=== PATIENT | male | born 1960 | race Caucasian/White ===

== ENCOUNTER 2022-09-09 08:20 | Day surgery (SDC) | payer OTHER ==
[2022-09-09 09:08] LABS: BASO % 0.1 % (0-2.0); HEMATOCRIT 24.9 % (35.4-49); LYMPH % 96.3 % (8-40); MCH 22.9 pg (25.7-33.7); MCHC 26.4 g/dl (32.0-35.9); MEAN CELL VOLUME 86.8 fl (80-96); MEAN PLT VOLUME 7.3 fl (7.5-11.1); MONO % 1.5 % (3.8-10.2); NEUT % 2.1 % (42.8-82.8); PLATELET COUNT 65 10^3/uL (134-434); RBC 2.87 M/mm3 (4.00-5.60); RDW 19.9 % (11.9-15.9)
[2022-09-09 09:20] LABS: HEMOGLOBIN 6.6 GM/dL (11.7-16.9)
[2022-09-09] MEDS ORDERED: SODIUM CHLORIDE 250 ML IV ONE (09:30)
[2022-09-09 10:00] LABS: ANISOCYTOSIS 3+; MACROCYTOSIS 0; TARGET CELLS 1+
[2022-09-09] MEDS ORDERED: DIPHENHYDRAMINE 50 MG in SODIUM CHLORIDE 50 ML IVPB ONE (10:00)
[2022-09-09] MEDS ORDERED: ACETAMINOPHEN 325 MG TABLET (FP) PO ONE ×2 (10:00→18:30)
[2022-09-09 10:03] LABS: POTASSIUM 3.8 mmol/L (3.5-5.1)
[2022-09-09 10:06] LABS: ALBUMIN 3.7 g/dl (3.4-5.0); BLOOD UREA NITROGEN 28.8 mg/dL (7-18)
[2022-09-09 10:09] LABS: CREATININE 1.1 mg/dL (0.55-1.3)
[2022-09-09 10:10] LABS: BILIRUBIN,TOTAL 1.3 mg/dL (0.2-1); TOT PROT 7.3 g/dl (6.4-8.2)
[2022-09-09 10:12] LABS: BILIRUBIN,DIRECT 0.3 mg/dL (0.0-0.2)
[2022-09-09] MEDS ORDERED: RITUXIMAB-ABBS 500 MG, RITUXIMAB-ABBS 261 MG in SODIUM CHLORIDE 684.9 ML IVPB ONE (10:30)
[2022-09-09] MEDS ORDERED: ONDANSETRON 4 MG TABLET PO ONE (13:15)
[2022-09-09] MEDS ORDERED: EPINEPHrine 1:1,000 0.3 MG/0.3 ML SYR IM PRN (13:17)
[2022-09-09] MEDS ORDERED: ALBUTEROL SO4 0.083% IH SOL 2.5 MG/3 ML VIAL.NEB. NEB PRN (13:18)
[2022-09-09] MEDS ORDERED: methylPREDNISolone NA SUCC 40 MG/1 ML VIAL IVPUSH PRN (13:19)
[2022-09-09] MEDS ORDERED: FAMOTIDINE 20 MG/50 ML IVPB 20 MG/50 ML MG IVPB PRN (13:20)
[2022-09-09] MEDS ORDERED: ALBUTEROL SO4 HFA INHALER IH PRN (13:22)
[2022-09-09] MEDS ORDERED: SODIUM CHLORIDE 500 ML IVPB ONE (13:25)
[2022-09-09] MEDS ORDERED: DEXAMETHASONE SOD PHOSPHATE 10 MG/1 ML VIAL ONE (14:58)
[2022-09-09] MEDS ORDERED: DEXAMETHASONE SOD PHOSPHATE 10 MG/1 ML VIAL IVPUSH ONE (15:15)
[2022-09-09] MEDS ORDERED: methylPREDNISolone NA SUCC 125 MG/2 ML VIAL IVPUSH PRN ×2 (18:14)
[2022-09-09 18:53] VITALS: BP 112/47; PULSE 101; RESP 18; TEMP 98.5
== END 2022-09-09 19:11 | disposition home or self-care (01) ==
LOC: JONCCHEMO 08:20 → J7W 08:30 → JONCCHEMO 19:11
PROVIDERS: ATTEND Internal Medicine Hematology & Oncology
DX: Z51.11 Encounter for antineoplastic chemotherapy (principal); C91.10 Chronic lymphocytic leukemia of B-cell type not having achieved remission
CPT/HCPCS: 36415; 80048; 80076; 83615; 85025; 86705; 86850; 86900; 86901; 87340; J1100; Q5115

== ENCOUNTER 2022-09-11 17:01 | Observation (INO) | payer OTHER ==
[2022-09-11] MEDS ORDERED: SODIUM CHLORIDE 0.9% 1000 ML INFUS.BAG IV ONE (18:11)
[2022-09-11 18:51] LABS: BASO % 0.3 % (0-2.0); HEMATOCRIT 27.6 % (35.4-49); HEMOGLOBIN 9.1 GM/dL (11.7-16.9); LYMPH % 94.1 % (8-40); MCH 28.1 pg (25.7-33.7); MCHC 32.8 g/dl (32.0-35.9); MEAN CELL VOLUME 85.6 fl (80-96); MONO % 1.3 % (3.8-10.2); NEUT % 4.3 % (42.8-82.8); RBC 3.23 M/mm3 (4.00-5.60); RDW 18.1 % (11.9-15.9)
[2022-09-11 18:52] LABS: WHITE BLOOD COUNT 40.2 K/mm3 (4.0-10.0)
[2022-09-11 18:53] LABS: PLATELET COUNT 27 10^3/uL (134-434)
[2022-09-11 18:59] LABS: INR 1.42 (0.83-1.09); PROTHROMBIN TIME (PATIENT) 16.4 SEC (9.7-13.0)
[2022-09-11 19:00] LABS: ACTIVATED PTT 26.1 SECONDS (25.2-36.5)
[2022-09-11 19:10] LABS: POTASSIUM 4.4 mmol/L (3.5-5.1)
[2022-09-11 19:13] LABS: ALBUMIN 3.5 g/dl (3.4-5.0); BLOOD UREA NITROGEN 25.2 mg/dL (7-18); CALCIUM 9.3 mg/dL (8.5-10.1)
[2022-09-11 19:14] LABS: URIC ACID 9.9 mg/dL (2.6-7.2)
[2022-09-11 19:15] LABS: CREATININE 0.8 mg/dL (0.55-1.3)
[2022-09-11 19:17] LABS: BILIRUBIN,TOTAL 0.9 mg/dL (0.2-1); TOT PROT 6.8 g/dl (6.4-8.2)
[2022-09-11 19:33] LABS: ANISOCYTOSIS 3+; MACROCYTOSIS 0; OVALOCYTE 1+
[2022-09-11] MEDS ORDERED: LOPERAMIDE HCL 2 MG CAPSULE PO PRN (21:15)
[2022-09-11] MEDS: SODIUM CHLORIDE 1,000 ML IV SCH (21:20)
[2022-09-11] MEDS: FERROUS SO4 325 MG TABLET (FP) PO SCH (21:20)
[2022-09-11] MEDS ORDERED: FERROUS SO4 325 MG TABLET (FP) ONE (21:22)
[2022-09-11] MEDS ORDERED: ACETAMINOPHEN 325 MG TABLET (FP) PO PRN (21:54)
[2022-09-12 03:03] VITALS: BMI 27.5
[2022-09-12 09:02] VITALS: RESP 20
[2022-09-12] MEDS: SODIUM CHLORIDE 1,000 ML IV SCH (09:13)
[2022-09-12 09:14] LABS: HEMATOCRIT 26.3 % (35.4-49); HEMOGLOBIN 8.6 GM/dL (11.7-16.9); MCH 27.9 pg (25.7-33.7); MCHC 32.9 g/dl (32.0-35.9); MEAN CELL VOLUME 84.9 fl (80-96); MEAN PLT VOLUME 8.5 fl (7.5-11.1); RBC 3.09 M/mm3 (4.00-5.60); RDW 18.3 % (11.9-15.9)
[2022-09-12 09:20] LABS: PLATELET COUNT 30 10^3/uL (134-434)
[2022-09-12 09:23] LABS: INR 1.31 (0.83-1.09); PROTHROMBIN TIME (PATIENT) 15.1 SEC (9.7-13.0)
[2022-09-12 09:42] LABS: POTASSIUM 4.1 mmol/L (3.5-5.1)
[2022-09-12 09:46] LABS: ALBUMIN 3.2 g/dl (3.4-5.0); BLOOD UREA NITROGEN 19.3 mg/dL (7-18); MAGNESIUM 1.9 mg/dL (1.8-2.4)
[2022-09-12 09:50] LABS: CREATININE 0.7 mg/dL (0.55-1.3); PHOSPHOROUS 3.6 mg/dL (2.5-4.9); TOT PROT 6.2 g/dl (6.4-8.2); URIC ACID 8.5 mg/dL (2.6-7.2)
[2022-09-12] MEDS ORDERED: FUROSEMIDE 20 MG TABLET (FP) PO SCH (10:00)
[2022-09-12] MEDS ORDERED: ALLOPURINOL 300 MG TABLET (FP) PO SCH (10:00)
[2022-09-12] MEDS ORDERED: LOSARTAN POTASSIUM 50 MG TABLET PO SCH (10:00)
[2022-09-12] MEDS ORDERED: TAMSULOSIN HCL 0.4 MG CAP PO SCH (10:00)
[2022-09-12] MEDS ORDERED: amLODIPine BESYLATE 10 MG TABLET (FP) PO SCH (10:00)
[2022-09-12 10:26] LABS: ANISOCYTOSIS 1+; MACROCYTOSIS 0
[2022-09-12] MEDS: FERROUS SO4 325 MG TABLET (FP) PO SCH (10:31)
[2022-09-12 14:57] VITALS: BP 127/65; PULSE 93; TEMP 98.4
== END 2022-09-12 15:59 | disposition home or self-care (01) ==
LOC: JER 17:01 → JERBED 21:07 → INTOOBSV 21:07 → J8W 23:40
PROVIDERS: ADMIT Internal Medicine; ATTEND Nurse Practitioner Acute Care
PROC: 3E0337Z Introduction of Electrolytic and Water Balance Substance into Peripheral Vein, Percutaneous Approach (ICD-10-PCS; principal; 2022-09-11)
PROC: 06H03DZ Insertion of Intraluminal Device into Inferior Vena Cava, Percutaneous Approach (ICD-10-PCS; 2022-09-11)
DX: C91.10 Chronic lymphocytic leukemia of B-cell type not having achieved remission (principal); I82.409 Acute embolism and thrombosis of unspecified deep veins of unspecified lower extremity; N40.0 Benign prostatic hyperplasia without lower urinary tract symptoms; Z29.9 Encounter for prophylactic measures, unspecified; I10 Essential (primary) hypertension; D69.6 Thrombocytopenia, unspecified
CPT/HCPCS: 36415; 36430; 37191; 80048; 80053; 80076; 83615; 83735; 84100; 84550; 85025; 85384; 85610; 85730; 86850; 86900; 86901; 93005; 93010; 93971-TC; 96361; 96365; 96375; 99285-25; G0378; P9037

== ENCOUNTER 2022-09-17 07:52 | Day surgery (SDC) | payer OTHER ==
[2022-09-17] MEDS ORDERED: SODIUM CHLORIDE 250 ML IV ONE (08:00)
[2022-09-17] MEDS ORDERED: DIPHENHYDRAMINE 50 MG in SODIUM CHLORIDE 50 ML IVPB ONE (08:30)
[2022-09-17] MEDS ORDERED: ACETAMINOPHEN 325 MG TABLET (FP) PO ONE (08:30)
[2022-09-17 08:49] LABS: HEMATOCRIT 30.3 % (35.4-49); HEMOGLOBIN 9.7 GM/dL (11.7-16.9); MCH 28.1 pg (25.7-33.7); MCHC 31.8 g/dl (32.0-35.9); MEAN CELL VOLUME 88.5 fl (80-96); MEAN PLT VOLUME 9.4 fl (7.5-11.1); PLATELET COUNT 49 10^3/uL (134-434); RBC 3.43 M/mm3 (4.00-5.60); RDW 18.2 % (11.9-15.9)
[2022-09-17 08:59] LABS: WHITE BLOOD COUNT 44.4 K/mm3 (4.0-10.0)
[2022-09-17] MEDS ORDERED: RITUXIMAB-ABBS 500 MG, RITUXIMAB-ABBS 261 MG in SODIUM CHLORIDE 684.9 ML IVPB ONE (09:00)
[2022-09-17 09:04] LABS: POTASSIUM 4.3 mmol/L (3.5-5.1)
[2022-09-17 09:07] LABS: ALBUMIN 3.4 g/dl (3.4-5.0); BLOOD UREA NITROGEN 16.5 mg/dL (7-18)
[2022-09-17 09:09] LABS: BILIRUBIN,DIRECT 0.2 mg/dL (0.0-0.2)
[2022-09-17 09:11] LABS: BILIRUBIN,TOTAL 0.5 mg/dL (0.2-1); TOT PROT 6.8 g/dl (6.4-8.2)
[2022-09-17 09:13] LABS: CALCIUM 11.4 mg/dL (8.5-10.1)
[2022-09-17 09:55] LABS: ANISOCYTOSIS 0; HELMET CELLS 0; HOWELL-JOLLY BODIES 0; MACROCYTOSIS 0; OVALOCYTE 0; ROULEAU 0; SICKELED CELLS 0; TARGET CELLS 0; TEAR DROP CELLS 0; TOXIC GRANULATION 0
[2022-09-17] MEDS ORDERED: FAMOTIDINE 20 MG/50 ML IVPB 20 MG/50 ML MG IVPB ONE (10:00)
[2022-09-17] MEDS ORDERED: DEXAMETHASONE INJECTION 10 MG in DEXTROSE 5%-WATER - 50 ML IVPB ONE (10:00)
[2022-09-17] MEDS ORDERED: DEXAMETHASONE INJECTION 10 MG in SODIUM CHLORIDE 50 ML IVPB ONE (10:00)
[2022-09-17] MEDS ORDERED: MONTELUKAST NA 10 MG TABLET PO ONE (10:00)
[2022-09-17 17:28] VITALS: RESP 18
[2022-09-17 17:33] VITALS: BP 150/67; PULSE 98; TEMP 98.8
== END 2022-09-17 16:20 | disposition home or self-care (01) ==
LOC: JONCCHEMO 07:52 → J7W 07:53 → JONCCHEMO 16:20
PROVIDERS: ATTEND Internal Medicine Hematology & Oncology
DX: Z51.11 Encounter for antineoplastic chemotherapy (principal); C90.00 Multiple myeloma not having achieved remission
CPT/HCPCS: 36415; 80048; 80076; 83615; 85025; 86704; 86705; 86707; 86708; 86709; 86803; 87340; 87350; 87517; 96367; 96375; 96413; 96415; J1100; Q5115

== ENCOUNTER 2022-10-01 08:33 | Day surgery (SDC) | payer OTHER ==
[2022-10-01] MEDS ORDERED: SODIUM CHLORIDE 250 ML IV ONE (09:00)
[2022-10-01] MEDS ORDERED: ACETAMINOPHEN 325 MG TABLET (FP) PO ONE (09:30)
[2022-10-01] MEDS ORDERED: MONTELUKAST NA 10 MG TABLET PO ONE (09:30)
[2022-10-01] MEDS ORDERED: DEXAMETHASONE INJECTION 10 MG, DIPHENHYDRAMINE 50 MG in SODIUM CHLORIDE 100 ML IVPB ONE (09:30)
[2022-10-01] MEDS ORDERED: FAMOTIDINE 20 MG/50 ML IVPB 20 MG/50 ML MG IVPB ONE (09:30)
[2022-10-01] MEDS ORDERED: RITUXIMAB-ABBS 500 MG, RITUXIMAB-ABBS 261 MG in SODIUM CHLORIDE 684.9 ML IVPB ONE (10:00)
[2022-10-01 10:34] LABS: HEMATOCRIT 18.3 % (35.4-49); MCH 28.2 pg (25.7-33.7); MCHC 31.9 g/dl (32.0-35.9); MEAN CELL VOLUME 88.6 fl (80-96); MEAN PLT VOLUME 8.6 fl (7.5-11.1); RBC 2.06 M/mm3 (4.00-5.60); RDW 17.8 % (11.9-15.9)
[2022-10-01 10:40] LABS: HEMOGLOBIN 5.8 GM/dL (11.7-16.9); WHITE BLOOD COUNT 69.6 K/mm3 (4.0-10.0)
[2022-10-01 10:55] LABS: POTASSIUM 3.7 mmol/L (3.5-5.1)
[2022-10-01 10:57] LABS: ALBUMIN 3.3 g/dl (3.4-5.0); BLOOD UREA NITROGEN 20.6 mg/dL (7-18)
[2022-10-01 10:59] LABS: BILIRUBIN,DIRECT 0.1 mg/dL (0.0-0.2)
[2022-10-01 11:00] LABS: CREATININE 1.4 mg/dL (0.55-1.3)
[2022-10-01 11:01] LABS: BILIRUBIN,TOTAL 0.7 mg/dL (0.2-1); TOT PROT 6.7 g/dl (6.4-8.2)
[2022-10-01 11:49] LABS: ANISOCYTOSIS 0; MACROCYTOSIS 0; PLATELET COUNT 18 10^3/uL (134-434)
[2022-10-01 12:21] LABS: CALCIUM 8.7 mg/dL (8.5-10.1)
[2022-10-01 17:21] VITALS: RESP 18; TEMP 98
[2022-10-01 18:01] VITALS: BP 126/63; PULSE 103
== END 2022-10-01 18:00 | disposition home or self-care (01) ==
LOC: J7W 08:33 → JONCCHEMO 08:33
PROVIDERS: ATTEND Internal Medicine Hematology & Oncology
DX: Z51.11 Encounter for antineoplastic chemotherapy (principal); C91.10 Chronic lymphocytic leukemia of B-cell type not having achieved remission
CPT/HCPCS: 36415; 80048; 80076; 83615; 85025; 86705; 86706; 86708; 86709; 86850; 86900; 86901; 87350; 87522; 96367; 96413; 96415; J1100; Q5115

== ENCOUNTER 2022-10-08 11:54 | Day surgery (SDC) | payer OTHER ==
[~2022-10-08 11:54] MED LIST: ACETAMINOPHEN 325 MG TABLET (FP) PO ONE; DEXAMETHASONE INJECTION 10 MG, DIPHENHYDRAMINE 50 MG in SODIUM CHLORIDE 100 ML IVPB ONE; FAMOTIDINE 20 MG/50 ML IVPB 20 MG/50 ML MG IVPB ONE; MONTELUKAST NA 10 MG TABLET PO ONE; RITUXIMAB-ABBS 500 MG, RITUXIMAB-ABBS 261 MG in SODIUM CHLORIDE 684.9 ML IVPB ONE; SODIUM CHLORIDE 250 ML IV ONE
[2022-10-08 17:17] VITALS: BP 137/72; PULSE 88; RESP 18; TEMP 98.4
== END 2022-10-08 16:00 | disposition home or self-care (01) ==
LOC: JONCBLOOD 11:54
PROVIDERS: ATTEND Internal Medicine Hematology & Oncology
PROC: 30233R1 Transfusion of Nonautologous Platelets into Peripheral Vein, Percutaneous Approach (ICD-10-PCS; principal; 2022-10-08)
DX: C91.10 Chronic lymphocytic leukemia of B-cell type not having achieved remission (principal)
CPT/HCPCS: 36430; 86850; 86900; 86901; P9034

== ENCOUNTER 2022-10-10 11:42 | Inpatient (IN) | payer OTHER ==
[2022-10-10 11:59] VITALS: BMI 25.5
[2022-10-10] MEDS ORDERED: MAG HYDROX/AL HYDROX/SIMETH 30 ML UNIT-DOSE CUP PO ONE (14:05)
[2022-10-10] MEDS ORDERED: FAMOTIDINE 20 MG/50 ML IVPB 20 MG/50 ML MG IVPB ONE ×2 (14:05→15:38)
[2022-10-10 14:51] LABS: HEMATOCRIT 23.1 % (35.4-49); HEMOGLOBIN 7.7 GM/dL (11.7-16.9); MCH 28.7 pg (25.7-33.7); MCHC 33.4 g/dl (32.0-35.9); MEAN CELL VOLUME 86.1 fl (80-96); MEAN PLT VOLUME 7.4 fl (7.5-11.1); RBC 2.69 M/mm3 (4.00-5.60); RDW 16.2 % (11.9-15.9); WHITE BLOOD COUNT 20.5 K/mm3 (4.0-10.0)
[2022-10-10] MEDS ORDERED: MAG HYDROX/AL HYDROX/SIMETH 30 ML UNIT-DOSE CUP ONE (14:59)
[2022-10-10 15:05] LABS: PLATELET COUNT 22 10^3/uL (134-434)
[2022-10-10] MEDS ORDERED: SODIUM CHLORIDE 0.9% 500 ML INFUS.BAG IV ONE ×2 (15:11→16:17)
[2022-10-10 15:17] LABS: ANISOCYTOSIS 0; HELMET CELLS 0; HOWELL-JOLLY BODIES 0; MACROCYTOSIS 0; OVALOCYTE 0; ROULEAU 0; SICKELED CELLS 0; TARGET CELLS 0; TEAR DROP CELLS 0; TOXIC GRANULATION 0
[2022-10-10 15:20] LABS: CHLORIDE 99 mmol/L (98-107); POTASSIUM 4.9 mmol/L (3.5-5.1); SODIUM 137 mmol/L (136-145)
[2022-10-10 15:23] LABS: ALBUMIN 3.5 g/dl (3.4-5.0); ANION GAP 10 MMOL/L (8-16); BLOOD UREA NITROGEN 33.3 mg/dL (7-18); CO2 28 mmol/L (21-32); GLUCOSE,RANDOM 117 mg/dL (74-106); MAGNESIUM 1.9 mg/dL (1.8-2.4)
[2022-10-10 15:26] LABS: CREATININE 1.7 mg/dL (0.55-1.3); PHOSPHOROUS 6.6 mg/dL (2.5-4.9); SGOT/AST 27 U/L (15-37); SGPT/ALT 20 U/L (13-61)
[2022-10-10 15:27] LABS: BILIRUBIN,TOTAL 1.6 mg/dL (0.2-1); TOT PROT 7.5 g/dl (6.4-8.2)
[2022-10-10 15:29] LABS: ALK PHOS 133 U/L (45-117)
[2022-10-10 15:42] LABS: CALCIUM 16.2 mg/dL (8.5-10.1)
[2022-10-10] MEDS ORDERED: SODIUM CHLORIDE 1,000 ML IV STA (17:40)
[2022-10-10 18:47] LABS: BILIRUBIN,DIRECT 0.4 mg/dL (0.0-0.2)
[2022-10-10 18:48] LABS: PHOSPHOROUS 6.1 mg/dL (2.5-4.9)
[2022-10-10] MEDS: CALCITONIN - SALMON SYNTHETIC 400 UNIT/2 ML VIAL IM SCH (18:53)
[2022-10-10 20:45] LABS: CHLORIDE 105 mmol/L (98-107); POTASSIUM 4.6 mmol/L (3.5-5.1); SODIUM 137 mmol/L (136-145)
[2022-10-10 20:46] LABS: ANION GAP 7 MMOL/L (8-16); CO2 26 mmol/L (21-32)
[2022-10-10 20:47] LABS: GLUCOSE,RANDOM 142 mg/dL (74-106)
[2022-10-10 20:50] LABS: CALCIUM 14.6 mg/dL (8.5-10.1); CREATININE 1.6 mg/dL (0.55-1.3)
[2022-10-10 21:32] LABS: URINE APPEARANCE CLEAR; URINE BILIRUBIN NEGATIVE (NEGATIVE); URINE COLOR YELLOW; URINE GLUCOSE (UA) NEGATIVE (NEGATIVE); URINE KETONE NEGATIVE (NEGATIVE); URINE LEUK ESTERASE NEGATIVE (NEGATIVE); URINE NITRITE NEGATIVE (NEGATIVE); URINE PROTEIN TRACE (NEGATIVE); URINE UROBILINOGEN 0.2 mg/dL (0.2-1.0)
[2022-10-10] MEDS: HEPARIN NA (PORCINE) 5,000 UNITS/ML 1ML VIAL SQ SCH (22:10)
[2022-10-10] MEDS: SODIUM CHLORIDE 1,000 ML IV SCH (22:30)
[2022-10-11] MEDS ORDERED: ACETAMINOPHEN 325 MG TABLET (FP) PO PRN (06:26)
[2022-10-11] MEDS ORDERED: LOPERAMIDE HCL 2 MG PO SCH (06:30)
[2022-10-11] MEDS ORDERED: ERGOCALCIFEROL (VIT D2) 50,000 UNIT (1.25 MG) CAPSULE PO SCH (06:30)
[2022-10-11] MEDS: SODIUM CHLORIDE 1,000 ML IV SCH ×2 (06:34→19:15)
[2022-10-11] MEDS ORDERED: LOPERAMIDE HCL 2 MG CAPSULE PO PRN (07:37)
[2022-10-11 08:15] LABS: INR 0.73 (0.83-1.09)
[2022-10-11 08:16] LABS: MCH 29.2 pg (25.7-33.7); MCHC 33.8 g/dl (32.0-35.9); MEAN CELL VOLUME 86.4 fl (80-96); MEAN PLT VOLUME 7.5 fl (7.5-11.1); RBC 2.19 M/mm3 (4.00-5.60); RDW 16.2 % (11.9-15.9); WHITE BLOOD COUNT 16.8 K/mm3 (4.0-10.0)
[2022-10-11 08:35] LABS: POTASSIUM 4.5 mmol/L (3.5-5.1)
[2022-10-11] MEDS: TAMSULOSIN HCL 0.4 MG CAP PO SCH (08:37)
[2022-10-11] MEDS: FERROUS SO4 325 MG TABLET (FP) PO SCH ×2 (08:37→17:27)
[2022-10-11 08:38] LABS: BLOOD UREA NITROGEN 34.2 mg/dL (7-18)
[2022-10-11 08:39] LABS: MAGNESIUM 1.7 mg/dL (1.8-2.4)
[2022-10-11 08:40] LABS: PHOSPHOROUS 4.1 mg/dL (2.5-4.9)
[2022-10-11 08:41] LABS: CREATININE 1.5 mg/dL (0.55-1.3)
[2022-10-11 08:43] LABS: TOT PROT 6.5 g/dl (6.4-8.2)
[2022-10-11 09:21] LABS: URIC ACID 7.5 mg/dL (2.6-7.2)
[2022-10-11 09:24] LABS: ANISOCYTOSIS 2+; MACROCYTOSIS 0; TARGET CELLS 1+
[2022-10-11 09:32] LABS: HEMOGLOBIN 6.4 GM/dL (11.7-16.9)
[2022-10-11 09:33] LABS: ACTIVATED PTT > 400.0 SECONDS (25.2-36.5); PLATELET COUNT 21 10^3/uL (134-434)
[2022-10-11] MEDS ORDERED: FUROSEMIDE 20 MG TABLET (FP) PO SCH (10:00)
[2022-10-11] MEDS: HEPARIN NA (PORCINE) 5,000 UNITS/ML 1ML VIAL SQ SCH (10:10)
[2022-10-11] MEDS: SOLIFENACIN SUCCINATE 5 MG TAB PO SCH (11:00)
[2022-10-11] MEDS: ALLOPURINOL 300 MG TABLET (FP) PO SCH (11:00)
[2022-10-11] MEDS: ESCITALOPRAM OXALATE 10 MG TABLET PO SCH (11:00)
[2022-10-11 11:51] LABS: POTASSIUM 4.2 mmol/L (3.5-5.1)
[2022-10-11 11:52] LABS: CALCIUM 12.4 mg/dL (8.5-10.1)
[2022-10-11 11:53] LABS: BLOOD UREA NITROGEN 33.1 mg/dL (7-18)
[2022-10-11 11:56] LABS: CREATININE 1.4 mg/dL (0.55-1.3)
[2022-10-11] MEDS: CALCITONIN - SALMON SYNTHETIC 400 UNIT/2 ML VIAL IM SCH (14:26)
[2022-10-11 18:56] LABS: POTASSIUM 4.1 mmol/L (3.5-5.1)
[2022-10-11 18:57] LABS: CALCIUM 12.3 mg/dL (8.5-10.1)
[2022-10-11 18:58] LABS: BLOOD UREA NITROGEN 33.4 mg/dL (7-18)
[2022-10-11 19:01] LABS: CREATININE 1.4 mg/dL (0.55-1.3)
[2022-10-12] MEDS: FERROUS SO4 325 MG TABLET (FP) PO SCH ×2 (08:35→17:23)
[2022-10-12] MEDS: TAMSULOSIN HCL 0.4 MG CAP PO SCH (08:35)
[2022-10-12] MEDS: SOLIFENACIN SUCCINATE 5 MG TAB PO SCH (10:33)
[2022-10-12] MEDS: ESCITALOPRAM OXALATE 10 MG TABLET PO SCH (10:33)
[2022-10-12] MEDS: ALLOPURINOL 300 MG TABLET (FP) PO SCH (10:33)
[2022-10-12 11:55] LABS: HEMOGLOBIN 9.7 GM/dL (11.7-16.9); MCH 29.4 pg (25.7-33.7); MCHC 34.8 g/dl (32.0-35.9); MEAN CELL VOLUME 84.3 fl (80-96); MEAN PLT VOLUME 7.6 fl (7.5-11.1); RBC 3.32 M/mm3 (4.00-5.60); RDW 15.6 % (11.9-15.9); WHITE BLOOD COUNT 24.1 K/mm3 (4.0-10.0)
[2022-10-12 12:05] LABS: PLATELET COUNT 14 10^3/uL (134-434)
[2022-10-12 12:12] LABS: POTASSIUM 3.6 mmol/L (3.5-5.1)
[2022-10-12 12:15] LABS: ALBUMIN 3.2 g/dl (3.4-5.0); BLOOD UREA NITROGEN 24.7 mg/dL (7-18); CALCIUM 13.5 mg/dL (8.5-10.1)
[2022-10-12 12:16] LABS: MAGNESIUM 1.5 mg/dL (1.8-2.4)
[2022-10-12 12:18] LABS: CREATININE 1.3 mg/dL (0.55-1.3); PHOSPHOROUS 2.8 mg/dL (2.5-4.9)
[2022-10-12 12:20] LABS: BILIRUBIN,TOTAL 0.9 mg/dL (0.2-1); TOT PROT 6.9 g/dl (6.4-8.2)
[2022-10-12] MEDS ORDERED: MAGNESIUM SULF 50% (8.12 MEQ/2 ML-1 GM VIAL) IVPB ONE (14:49)
[2022-10-12] MEDS: SODIUM CHLORIDE 1,000 ML IV SCH ×2 (15:20→19:15)
[2022-10-12 16:21] LABS: INR 1.17 (0.83-1.09); PROTHROMBIN TIME (PATIENT) 13.6 SEC (9.7-13.0)
[2022-10-13 12:17] LABS: HEMATOCRIT 27.4 % (35.4-49); HEMOGLOBIN 9.7 GM/dL (11.7-16.9); MCH 29.5 pg (25.7-33.7); MCHC 35.3 g/dl (32.0-35.9); MEAN CELL VOLUME 83.6 fl (80-96); MEAN PLT VOLUME 8.4 fl (7.5-11.1); RBC 3.28 M/mm3 (4.00-5.60); RDW 15.7 % (11.9-15.9)
[2022-10-13 12:22] LABS: PLATELET COUNT 9 10^3/uL (134-434); WHITE BLOOD COUNT 31.5 K/mm3 (4.0-10.0)
[2022-10-13] MEDS: TAMSULOSIN HCL 0.4 MG CAP PO SCH (12:41)
[2022-10-13] MEDS: ESCITALOPRAM OXALATE 10 MG TABLET PO SCH (12:41)
[2022-10-13 12:48] LABS: CHLORIDE 104 mmol/L (98-107); POTASSIUM 3.6 mmol/L (3.5-5.1); SODIUM 142 mmol/L (136-145)
[2022-10-13 12:51] LABS: ALBUMIN 3.4 g/dl (3.4-5.0); ANION GAP 9 MMOL/L (8-16); BLOOD UREA NITROGEN 24.2 mg/dL (7-18); CO2 29 mmol/L (21-32); GLUCOSE,RANDOM 126 mg/dL (74-106); MAGNESIUM 1.7 mg/dL (1.8-2.4)
[2022-10-13 12:54] LABS: CREATININE 1.5 mg/dL (0.55-1.3); PHOSPHOROUS 3.9 mg/dL (2.5-4.9); SGOT/AST 34 U/L (15-37); SGPT/ALT 17 U/L (13-61)
[2022-10-13 12:56] LABS: TOT PROT 7.1 g/dl (6.4-8.2)
[2022-10-13 12:57] LABS: ALK PHOS 134 U/L (45-117)
[2022-10-13 12:58] LABS: IRON SERUM 302 ug/dL (50-175)
[2022-10-13 12:59] LABS: TOTAL IRON BINDING CAPACITY 329 ug/dL (250-450)
[2022-10-13 13:07] LABS: CALCIUM 14.8 mg/dL (8.5-10.1)
[2022-10-13 14:51] LABS: ANISOCYTOSIS 2+; MACROCYTOSIS 0
[2022-10-13] MEDS ORDERED: MAGNESIUM OXIDE 400 MG TABLET (FP) PO ONE (14:52)
[2022-10-13] MEDS: FERROUS SO4 325 MG TABLET (FP) PO SCH ×2 (15:11→19:03)
[2022-10-13] MEDS: SOLIFENACIN SUCCINATE 5 MG TAB PO SCH (15:12)
[2022-10-13] MEDS: PANTOPRAZOLE 40 MG TABLET PO SCH (15:12)
[2022-10-13] MEDS: ALLOPURINOL 300 MG TABLET (FP) PO SCH (15:12)
[2022-10-13] MEDS: DEXAMETHASONE 4 MG TABLET (FP) PO SCH (15:13)
[2022-10-13] MEDS ORDERED: MAGNESIUM SULF 50% (8.12 MEQ/2 ML-1 GM VIAL) IVPB ONE (16:03)
[2022-10-13] MEDS ORDERED: CALCITONIN - SALMON SYNTHETIC 400 UNIT/2 ML VIAL SQ SCH (16:30)
[2022-10-13] MEDS ORDERED: ZOLEDRONIC ACID 4 MG in SODIUM CHLORIDE 100 ML IVPB ONE (17:00)
[2022-10-13] MEDS: CALCITONIN - SALMON SYNTHETIC 400 UNIT/2 ML VIAL SQ SCH (18:39)
[2022-10-13] MEDS: SODIUM CHLORIDE 1,000 ML IV SCH (19:53)
[2022-10-13] MEDS: SODIUM CHLORIDE 1,000 ML IV STA ×2 (21:56→23:06)
[2022-10-13 22:25] LABS: CO2 29 mmol/L (21-32); GLUCOSE,RANDOM 184 mg/dL (74-106)
[2022-10-13 22:26] LABS: ALBUMIN 3.4 g/dl (3.4-5.0); BLOOD UREA NITROGEN 27.5 mg/dL (7-18)
[2022-10-13 22:28] LABS: CREATININE 1.7 mg/dL (0.55-1.3); SGOT/AST 45 U/L (15-37)
[2022-10-13 22:30] LABS: TOT PROT 7.1 g/dl (6.4-8.2)
[2022-10-13 22:31] LABS: ALK PHOS 129 U/L (45-117)
[2022-10-13 22:41] LABS: ANION GAP 9 MMOL/L (8-16); BILIRUBIN,TOTAL 1.3 mg/dL (0.2-1); CALCIUM 15.5 mg/dL (8.5-10.1); CHLORIDE 100 mmol/L (98-107); POTASSIUM 4.2 mmol/L (3.5-5.1); SGPT/ALT 17 U/L (13-61); SODIUM 138 mmol/L (136-145)
[2022-10-13] MEDS ORDERED: SODIUM CHLORIDE 500 ML IV SCH (23:00)
[2022-10-14] MEDS: CALCITONIN - SALMON SYNTHETIC 400 UNIT/2 ML VIAL SQ SCH (04:03)
[2022-10-14 08:21] LABS: HEMATOCRIT 24.9 % (35.4-49); HEMOGLOBIN 8.4 GM/dL (11.7-16.9); MCH 29.1 pg (25.7-33.7); MCHC 33.8 g/dl (32.0-35.9); MEAN CELL VOLUME 86.1 fl (80-96); MEAN PLT VOLUME 6.7 fl (7.5-11.1); RBC 2.89 M/mm3 (4.00-5.60); RDW 15.8 % (11.9-15.9)
[2022-10-14 08:34] LABS: CHLORIDE 103 mmol/L (98-107); POTASSIUM 4.1 mmol/L (3.5-5.1); SODIUM 140 mmol/L (136-145)
[2022-10-14 08:36] LABS: PLATELET COUNT 25 10^3/uL (134-434); WHITE BLOOD COUNT 34.7 K/mm3 (4.0-10.0)
[2022-10-14 08:41] LABS: PHOSPHOROUS 5.2 mg/dL (2.5-4.9)
[2022-10-14 08:42] LABS: BLOOD UREA NITROGEN 33.9 mg/dL (7-18); GLUCOSE,RANDOM 174 mg/dL (74-106)
[2022-10-14 08:43] VITALS: RESP 18
[2022-10-14 08:43] LABS: ANION GAP 8 MMOL/L (8-16); BILIRUBIN,TOTAL 0.8 mg/dL (0.2-1); CO2 29 mmol/L (21-32); TOT PROT 6.5 g/dl (6.4-8.2)
[2022-10-14 08:44] LABS: ALK PHOS 113 U/L (45-117)
[2022-10-14 08:45] LABS: SGOT/AST 32 U/L (15-37); SGPT/ALT 15 U/L (13-61)
[2022-10-14 08:49] LABS: CALCIUM 14.9 mg/dL (8.5-10.1)
[2022-10-14 09:06] LABS: ANISOCYTOSIS 2+; MACROCYTOSIS 0
[2022-10-14] MEDS: FERROUS SO4 325 MG TABLET (FP) PO SCH (10:07)
[2022-10-14] MEDS: ESCITALOPRAM OXALATE 10 MG TABLET PO SCH (10:07)
[2022-10-14] MEDS: ALLOPURINOL 300 MG TABLET (FP) PO SCH (10:07)
[2022-10-14] MEDS: SOLIFENACIN SUCCINATE 5 MG TAB PO SCH (10:07)
[2022-10-14] MEDS: TAMSULOSIN HCL 0.4 MG CAP PO SCH (10:07)
[2022-10-14] MEDS: PANTOPRAZOLE 40 MG TABLET PO SCH (10:08)
[2022-10-14] MEDS: DEXAMETHASONE 4 MG TABLET (FP) PO SCH (10:09)
[2022-10-14 13:06] VITALS: BP 145/102; PULSE 73; TEMP 98.7
[2022-10-14] MEDS ORDERED: DENOSUMAB 120 MG/1.7 ML VIAL SQ ONE (13:35)
[2022-10-18] MEDS ORDERED: ERGOCALCIFEROL (VIT D2) 50,000 UNIT (1.25 MG) CAPSULE PO SCH (10:00)
== END 2022-10-14 13:34 | disposition short-term general hospital (02) | DRG 425 ==
LOC: JER 11:42 → INTOOBSV 16:17 → JERBED 16:17 → UNDOADMOB 16:17 → JERBED 18:39 → J4W 21:34 → OBSVTOIN 10-11 09:48
PROVIDERS: ADMIT Internal Medicine; ATTEND Internal Medicine
PROC: 30233N1 Transfusion of Nonautologous Red Blood Cells into Peripheral Vein, Percutaneous Approach (ICD-10-PCS; principal; 2022-10-11)
DX: E83.52 Hypercalcemia (principal); E88.3 Tumor lysis syndrome; C91.10 Chronic lymphocytic leukemia of B-cell type not having achieved remission; N17.9 Acute kidney failure, unspecified; D69.6 Thrombocytopenia, unspecified; D63.0 Anemia in neoplastic disease; I10 Essential (primary) hypertension; N40.0 Benign prostatic hyperplasia without lower urinary tract symptoms
CPT/HCPCS: 36415; 36430; 71046-TC-FY; 76775-TC; 80048; 80053; 81003; 82248; 82330; 82728; 83010; 83540; 83550; 83615; 83735; 83970; 84100; 84466; 84550; 85025; 85027; 85045; 85610; 85730; 86850; 86880; 86900; 86901; 86922; 87040; 87086; 87635; 88300-TC; 93005; 93010; 97116-GP; 97162-GP; 99285-25; G0378; J3489; P9034; P9058